=== PATIENT | female | born 1955 | race Caucasian/White ===

== ENCOUNTER 2017-05-14 22:34 | Emergency (ER) | payer OTHER ==
[2017-05-14 22:55] VITALS: RESP 16
[2017-05-14 23:19] LABS: COLOR YELLOW; LEUKOCYTE ESTERASE,URINE NEGATIVE (NEGATIVE); NITRITE,URINE NEGATIVE (NEGATIVE); PH,URINE 5.5 (5.0-7.5)
--- NOTE | 2017-05-14 23:26 | EDPHY ---
H & P Time Seen by Provider: 05/14/17 23:09 HPI/ROS: CHIEF COMPLAINT: inability to void HISTORY OF PRESENT ILLNESS: this is a 62-year-old female who had a exploratory laparoscopy today for evaluation lymph nodes. However she did have a catheterization at the very end of the surgery case in the intraoperative failure. Evidently the recovery in the recovery room had gone well and there is no particular difficulties, she did not require catheterization and the anesthesia recovery service. Once home she was hungry and he was able to eat. She also aggressively hydrated as she knew she should. However, after while she started noticing that she had a persistent need to urine and inability to actually passed respectful volume. Prior to this, in the last 2 days she has had no particular difficulty whatsoever with the urine. There has been no dysuria or frequency. In actuality, there remains to be in no sense of dysuria frequency its sense that she cannot actually empty her bladder She denies any fevers or chills or nausea vomiting History of frequent UTIs but not neck in the most recent past Fever none Chills none Rigors none flank pain none abdominal pain none Exposure: Surgical procedure today. REVIEW OF SYSTEMS: Constitutional - no fevers or chills Eyes - no diplopia, blurred vision, or discharge Cardiovascular - no chest pain, shortness of breath, or difficulty breathing. Respiratory - No Shortness of breath. GI - no nausea vomiting or diarrhea. There has been no abdominal distention. There is no abdominal pain or distention. . - no dysuria or frequency. No hematuria or flank pain. Musculoskeletal - no joint or muscle pain. Smoking Status: Former smoker Physical Exam: Gen: Afebrile. WD. WN. Nontoxic. Good color. Good eye contact. HEENT: No pallor. No icterus. Mucous membranes moist. Respiratory: Good air entry both lung [place]. No wheezing. Cardiovascular regular rate rhythm murmur Abdomen: BS positive. Multiple surgical scars from the puncture was associated with laparoscopy and associated ecchymotic changes as I would expect. Initially distended in the lower half of the abdomen secondary to enlarged better. Soft and there is some incisional tenderness at the site of the puncture wounds from the surgical procedure . No CVA tenderness. Constitutional: Initial Vital Signs Temperature (C) 36.6 C 05/14/17 22:52 Heart Rate 103 H 05/14/17 22:52 Respiratory Rate 16 05/14/17 22:52 Blood Pressure 120/82 H 05/14/17 22:52 O2 Sat (%) 93 05/14/17 22:52 O2 Delivery Mode Room Air Allergies/Adverse Reactions: nitrofurantoin [From Macrodantin] Allergy (Verified 05/14/17 22:50) Home Medications: Medication Instructions Recorded Hydrocodone/Acetaminophen [Vicodin 1 each PO 05/14/17 5-300 mg Tablet] Ibuprofen 600 mg PO 05/14/17 Medical Decision Making ED Course/Re-evaluation: Catheter passed by nursing. Healed with 600 cc of clear urine. Sent for specimen. Urinalysis some hematuria but no signs of infection. Evidently, when she called the surgeon of record the plan would be to see her on Wednesday and remove the catheter at that time. I did review the patient ability to remove the catheter home by a simple slip of both lines in case she is directed to do so much as we typically see with man with urinary tract retention followed by Urology. I suspect she developed a bit of a ball valve type process which she got her bladder to be on a certain point. Clearly 20 oz pretty problematic and would like to let her bladder rest for the weekend, thus the catheter be left in place. She was given the option to remove it and come back if need be but she preferred the former. Differential Diagnosis: Diagnostic considerations include, but are not limited to, the following: Urinary tract infection, pyelonephritis, cystitis, urinary retention, perforated viscus, aortic aneurysm, diverticulitis - Data Points Laboratory Results: 05/14/17 23:00 Urine Color YELLOW Urine Appearance CLEAR Urine pH 5.5 (5.0-7.5) Ur Specific [place] 1.015 (1.002-1.030) Urine Protein NEGATIVE (NEGATIVE) Urine Ketones 1+ H (NEGATIVE) Urine Blood 3+ H (NEGATIVE) Urine Nitrate NEGATIVE (NEGATIVE) Urine Bilirubin NEGATIVE (NEGATIVE) Urine Urobilinogen 0.2 EU EU (0.2-1.0) Ur Leukocyte Esterase NEGATIVE (NEGATIVE) Urine RBC 5-10 /hpf H /hpf (0-3) Urine WBC 1-3 /hpf /hpf (0-3) Ur Epithelial Cells NONE SEEN /lpf /lpf (NONE-1+) Urine Mucus TRACE /lpf /lpf (NONE-1+) Urine Glucose NEGATIVE (NEGATIVE) Departure - Departure Disposition: Home, Routine, Self-Care Instructions: Gordon Catheter Placement and Care (ED) Additional Instructions: follow up with your surgeon, return to ED for any problems. Referrals: CAROLINE CHACKO [Primary Care Provider] - As per Instructions
[2017-05-14 23:31] LABS: MUCUS TRACE /lpf (NONE-1+)
[2017-05-15 00:19] VITALS: BP 103/66; PULSE 56; TEMP 97.7; O2SAT 95
== END 2017-05-15 00:10 | disposition home or self-care (01) ==
LOC: CED 22:34
PROC: 0T9B70Z Drainage of Bladder with Drainage Device, Via Natural or Artificial Opening (ICD-10-PCS; principal; 2017-05-14)
DX: R33.9 Retention of urine, unspecified (principal); Z87.891 Personal history of nicotine dependence; Z98.890 Other specified postprocedural states
CPT/HCPCS: 81003-PO; 81015-PO

== ENCOUNTER → 2017-10-06 | Outpatient (CLI) | payer OTHER | LOC: BMCIMAGING 08:39 | PROVIDERS: ATTEND Family Medicine | DX: Z12.31 Encounter for screening mammogram for malignant neoplasm of breast (principal) | CPT/HCPCS: G0202 ==

== ENCOUNTER → 2017-10-15 | Outpatient (CLI) | payer OTHER | LOC: BMCIMAGING 09:35 | DX: Z03.89 Encounter for observation for other suspected diseases and conditions ruled out (principal) | CPT/HCPCS: G0206 ==

== ENCOUNTER → 2017-11-22 | Outpatient (CLI) | payer MEDICAID, OTHER | LOC: BRMIMAGING 11:03 | PROVIDERS: ATTEND Family Medicine | DX: Z13.820 Encounter for screening for osteoporosis (principal); M81.0 Age-related osteoporosis without current pathological fracture ==

== ENCOUNTER → 2018-08-16 | Outpatient (CLI) | payer MEDICAID | LOC: FIMAGING 08:05 | PROVIDERS: ATTEND Registered Nurse | DX: R10.11 Right upper quadrant pain (principal) ==